=== PATIENT | male | born 1995 | race African-American/Black ===

== ENCOUNTER 2017-10-22 22:16 | Emergency (ER) | payer SELFPAY ==
[2017-10-22 22:23] VITALS: BP 145/96; BMI 47.5
[2017-10-22] MEDS ORDERED: TORADOL 60 MG VIAL ONE (22:49)
[2017-10-22] MEDS ORDERED: TORADOL 60 MG VIAL IM ONE (22:53)
--- NOTE | 2017-10-23 00:17 | DR.GENAD ---
HPI - PCP Primary Care Physician: NFD - Complaint/Symptoms Chief Complaint Doctors Comments: History as stated. Chief Complaint:: LOWER BACK PAIN ON RIGHT SIDE SINCE YESTERDAY AFTER BENDING TO FIX A DRYER HOSE. ALWAYS HAD BACK PROBLEMS BUT NEVER HAD IT SEEN ABOUT. LIMITED WALKING , SINCE YESTERDAY. Self Treatment fo Chief Complaint: MUSCLE RELAXER. MOTRIN - Source History Provided: Patient - Mode of Arrival Mode of Arrival: Wheelchair - Timing Onset of Chief Complaint: 10/21/17 PMH - PMH Past Medical History: No Past Surgical History: No - Family History History of Family Medical Conditions: No - Social History Does patient currently use any type of tobacco product: No Have you used tobacco products in the last 12 months: No Type of Tobacco Use: None Does any household member use tobacco: No Alcohol Use: None Do you use any recreational Drugs:: No Lives Where: Home - infectious screening Have you traveled outside the country in the last 6 months?: No Isolation: Standard ROS - Review of Systems Eyes: No Symptoms Reported ENTM: No Symptoms Reported Respiratoy: No Symptoms Reported Cardiovascular: No Symptoms Reported Gastrointestinal/Abdominal: No Symptoms Reported Genitourinary: No Symptoms Reported Neurological: No Symptoms Reported Musculoskeletal: No Symptoms Reported Integumentary: No Symptoms Reported Hematologic/Lymphatic: No Symptoms Reported Endocrine: No Symptoms Reported Psychiatric: No Symptoms Reported All Other Systems: Reviewed and Negative PE - Vital Signs Vitals: Temperature 98.7 F Pulse Rate 95 Respiratory Rate 18 Blood Pressure 145/96 O2 Sat by Pulse Oximetry 96 - General Limitations: No Limitations General Appearance: Alert, In No Apparent Distress - Head Head Exam: Normal Inspection, Atraumatic - Eyes Eye exam: Normal Appearance, PERRL, EOMI - ENT ENT Exam: Normal Exam External Ear Exam: Normal External Inspection TM/Canal Exam: Bilateral Normal Nose Exam: Normal Nose Exam Mouth Exam: Normal Inspection Throat Exam: Normal Inspection - Neck Neck Exam: Normal Inspection - Chest Chest Inspection: Normal Inspection - Respiratory Respiratory Exam: Normal Lung Sounds Bilat Respiratory Exam: Bilateral Clear to Auscultation - Cardiovascular Cardiovascular Exam: Regular Rate, Normal Rhythm - Abdominal Exam Abdominal Exam: Normal Inspection, Normal Bowel Sounds Abdominal Tenderness: negative: RUQ, RLQ, LUQ, LLQ, Epigastrium, Suprapubic, Diffuse, Mild, Moderate, Severe, Other - Extremities Extremities Exam: Normal Inspection, Full ROM - Back Back Exam: Normal Inspection, Full ROM - Neurologic Neurological Exam: Alert, Oriented X3 - Psychiatric Psychiatric Exam: Normal Affect - Skin Skin Exam: Warm, Dry, Intact Course - Reevaluation 1st: Unchanged ROR - XRAY XRAY Interpreted by: Radiologist (Lumbar spine: No radiographic evidence of pathology identified) - Diagnosis Discharge Problem: Muscle spasm - Discharge Plan Condition: Stable - Follow ups/Referrals Follow ups/Referrals: NFD,None [Primary Care Provider] - 3 days - Instructions
--- NOTE | 2017-10-23 01:08 | RAD ---
Three views of the lumbar spine Indication: Lower back pain Findings: No acute fracture or spondylolisthesis within the lumbar spine. No spondylosis or spondylol ysis. SI joints are intact. Impression: No radiographic abnormality identified within the lumbar spine. Reported By:
[2017-10-23] MEDS ORDERED: ZANAFLEX PO PRN (01:36)
[2017-10-23] MEDS ORDERED: ZANAFLEX ONE (01:41)
== END 2017-10-23 01:43 | disposition home or self-care (01) ==
LOC: ER 22:30
DX: M62.838 Other muscle spasm (principal)
CPT/HCPCS: 72100; 96372; 99282; J1885